=== PATIENT | female | born 1990 | race Caucasian/White ===

== ENCOUNTER 2016-06-13 09:22 | Emergency (ER) | payer BC, MEDICAID ==
[2016-06-13 09:43] VITALS: BP 145/79
--- NOTE | 2016-06-13 10:05 | ED ---
Influenza-Like Illness - HPI Summary HPI Summary: 25 y/o female here c/o runny nose, sore throat, fever, chills, sinus congestion and postnasal drip since yesterday. She denies any JONES, CP or palpitations. She reports no abdominal pain diarrhea a=ro constipation. LMP 2 weeks ago. - History of Current Complaint Chief Complaint: UCRespiratory Time Seen by Provider: 06/13/16 09:55 Hx Obtained From: Patient Onset/Duration: Gradual Onset Severity: Moderate Associated Signs & Symptoms: Fever, Myalgia, Cough, Sore Throat, Nasal Congestion - Allergy/Home Medications Allergies/Adverse Reactions: Allergies Allergy/AdvReac Type Severity Reaction Status Date / Time Lidocaine [From Emla] Allergy BURNING Verified 03/02/15 08:42 Prilocaine [From Emla] Allergy BURNING Verified 03/02/15 08:42 PMH/Surg Hx/FS Hx/Imm Hx Endocrine/Hematology History: Denies: Hx Diabetes, Hx Thyroid Disease Cardiovascular History: Denies: Hx Hypertension, Other Cardiovascular Problems/Disorders Respiratory History: Denies: Hx Asthma, Hx Chronic Obstructive Pulmonary Disease (COPD), Other Respiratory Problems/Disorders GI History: Reports: Hx Gastroesophageal Reflux Disease Denies: Hx Ulcer, Other GI Disorders Musculoskeletal History: Denies: Other Musculoskeletal History Sensory History: Reports: Hx Contacts or Glasses - GLASSES Denies: Hx Hearing Aid Opthamlomology History: Reports: Hx Contacts or Glasses - GLASSES Neurological History: Reports: Hx Migraine - ONE ONLY Denies: Other Neuro Impairments/Disorders Psychiatric History: Reports: Hx Depression - POST - Surgical History Surgery Procedure, Year, and Place: SEPTOPLASTY 2008 [facility] [place] Hx Anesthesia Reactions: No - Immunization History Date of Tetanus Vaccine: 2012 Date of Influenza Vaccine: 2012 Infectious Disease History: No Infectious Disease History: Reports: Hx Shingles Denies: Hx Clostridium Difficile, Hx Hepatitis, Hx Human Immunodeficiency Virus (HIV), Hx of Known/Suspected MRSA, Hx Tuberculosis, Hx Known/Suspected VRE , Hx Known/Suspected VRSA, History Other Infectious Disease, Traveled Outside the [place] in Last 30 Days - Social History Alcohol Use: Rare Substance Use Type: Reports: None Smoking Status (MU): Former Smoker Have You Smoked in the Last Year: No Review of Systems Positive: Chills Eyes: Negative Positive: Sore Throat, Nasal Discharge Cardiovascular: Negative Respiratory: Negative Gastrointestinal: Negative Genitourinary: Negative Musculoskeletal: Negative Skin: Negative Neurological: Negative Psychological: Normal All Other Systems Reviewed And Are Negative: Yes Physical Exam - Summary Physical Exam Summary: Vital signs: Reviewed Gen.: Patient is an obese female in no acute distress. Patient is sitting comfortably on the stretcher. Head: Normacephalic and atraumatic Eyes: PERRLA, EOMI x2. Ears: Right ear canal and TM WNL and Left ear canal and TM WNL Nose and mouth: Nose with and clear discharge, mild pharyngeal erythema with no exudate. Neck: Supple, No cervical lymphadenopathy. No JVD Lungs: CTA B/L CVS: S1 & S2 present. No murmurs appreciated. ABDOMEN: Soft NT w/ positive BS. EXT: FROM x 4 NEURO: A+O X 3. Triage Information Reviewed: Yes Vital Signs On Initial Exam: Initial Vitals Temp Pulse Resp BP Pulse Ox 99.7 F 103 22 145/79 99 06/13/16 09:40 06/13/16 09:40 06/13/16 09:40 06/13/16 09:40 06/13/16 09:40 Vital Signs Reviewed: Yes Diagnostics - Vital Signs Vital Signs Temp Pulse Resp BP Pulse Ox 06/13/16 09:40 99.7 F 103 22 145/79 99 - Laboratory Lab Statement: Any lab studies that have been ordered have been reviewed, and results considered in the medical decision making process. Flu Symptom Course/Dx - Course Assessment/Plan: 25 y/o female here c/o runny nose, sore throat, fever, chills, sinus congestion and postnasal drip since yesterday. She denies any JONES, CP or palpitations. She reports no abdominal pain diarrhea or constipation. LMP 2 weeks ago. Patient reports her son was diagnosed with strep pharyngitis yesterday and now she is having same symptoms. Rapid strep is positive. Therefore she will given a Rx for Amoxicillin for 10 days. I discussed all the findings and test results with the patient. Patient was instructed to return to the emergency room immediately if any of the symptoms return or worsens. Plan of care was discussed with the patient and understands and agrees. All questions were answered at patient satisfaction. There were no further complaints or concerns. Lung exam before discharge: CTA B/L. Good air exchange. No wheezing or crackles heard. CVS: S1 and S2 present. No murmurs appreciated. Patient is alert and oriented x 3. Patient is hemodynamically stable. 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
== END 2016-06-13 10:39 | disposition home or self-care (01) ==
LOC: UCEAST 09:22
DX: J02.0 Streptococcal pharyngitis (principal); I10 Essential (primary) hypertension; Z88.4 Allergy status to anesthetic agent; Z87.891 Personal history of nicotine dependence
CPT/HCPCS: 87502; 87651; 99212; G0463

== ENCOUNTER 2018-03-07 16:10 | Emergency (ER) | payer OTHER ==
[2018-03-07 16:41] VITALS: BP 122/77
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
== END 2018-03-07 17:03 | disposition home or self-care (01) ==
LOC: UCEAST 16:10
DX: M62.830 Muscle spasm of back (principal); V43.52XA Car driver injured in collision with other type car in traffic accident, initial encounter; Y92.9 Unspecified place or not applicable; F17.210 Nicotine dependence, cigarettes, uncomplicated; Z88.4 Allergy status to anesthetic agent
CPT/HCPCS: 99212; G0463

== ENCOUNTER 2018-05-22 13:19 | Emergency (ER) | payer OTHER ==
[2018-05-22 13:42] VITALS: BP 120/74
--- NOTE | 2018-05-22 13:57 | UC ---
Skin Complaint HPI - HPI Summary HPI Summary: 27 yo female presents with rash on abdomen for the last 2 months. She tells me that over the last 2 months she has noticed small dime to quarter sized areas of scaling, itching, and redness/brownish on abdomen. She has not been applying any creams to the areas. No pain. Denies fever or recent illness. - History of Current Complaint Chief Complaint: UCRas Time Seen by Provider: 05/22/18 13:57 Stated Complaint: SKIN ISSUE Hx Obtained From: Patient Hx Last Menstrual Period: 05/17/18 Onset/Duration: Gradual Onset Current Severity: None Pain Intensity: 0 - Allergy/Home Medications Allergies/Adverse Reactions: Allergies Allergy/AdvReac Type Severity Reaction Status Date / Time lidocaine [From Emla] Allergy Pain Verified 05/22/18 13:43 prilocaine [From Emla] Allergy Pain Verified 05/22/18 13:43 PMH/Surg Hx/FS Hx/Imm Hx - Additional Past Medical History Additional PMH: none - Surgical History Surgical History: Yes Surgery Procedure, Year, and Place: TONSILS 2015. SEPTOPLASTY 2008 [facility] [place] - Family History Known Family History: Positive: None - Social History Lives: With Family Alcohol Use: Occasionally Substance Use Type: None Smoking Status (MU): Former Smoker Have You Smoked in the Last Year: No When Did the Patient Quit Smoking/Using Tobacco: 2013 - Immunization History Most Recent Influenza Vaccination: none Most Recent Tetanus Shot: 05/27/14 Most Recent Pneumonia Vaccination: n/a Review of Systems All Other Systems Reviewed And Are Negative: Yes Constitutional: Positive: Negative Skin: Positive: Rash Eyes: Positive: Negative ENT: Positive: Negative Respiratory: Positive: Negative Cardiovascular: Positive: Negative Gastrointestinal: Positive: Negative Neurovascular: Positive: Negative Neurological: Positive: Negative Psychological: Positive: Negative Physical Exam - Summary Physical Exam Summary: GENERAL: NAD. WDWN. No pain distress. SKIN: Abdomen: four <5mm areas of hyperpigmentation and mild scaling. No open wounds, erythema, edema, drainage, or pain. NECK: Supple. Nontender. No lymphadenopathy. CHEST: No accessory muscle use. Breathing comfortably and in no distress. CV: Pulses intact. Cap refill <2seconds NEURO: Alert. PSYCH: Age appropriate behavior. Triage Information Reviewed: Yes Vital Signs: Initial Vital Signs Temp 97.9 F 05/22/18 13:39 Pulse 78 02/21/19 13:39 Resp 17 05/22/18 13:39 BP 120/74 05/22/18 13:39 Pulse Ox 100 05/22/18 13:39 Vital Signs Reviewed: Yes Course/Dx - Course Course Of Treatment: Suspect tinea infection. Rx for clotrimazole. - Diagnoses Provider Diagnosis: Tinea Discharge - Sign-Out/Discharge Documenting (check all that apply): Patient Departure All imaging exams completed and their final reports reviewed: No Studies - Discharge Plan Condition: Stable Disposition: HOME Prescriptions: Clotrimazole 1% CREAM* [Clotrimazole 1%*] 1 applic TOPICAL BID #1 tube Patient Education Materials: Tinea Versicolor (ED) Referrals: No Primary Care Phys,NOPCP [Primary Care Provider] - Additional Instructions: If you develop a fever, shortness of breath, chest pain, new or worsening symptoms - please call your PCP or go to the ED. - Billing Disposition and Condition Condition: STABLE Disposition: Home
== END 2018-05-22 14:15 | disposition home or self-care (01) ==
LOC: UCEAST 13:19
DX: B35.9 Dermatophytosis, unspecified (principal); Z87.891 Personal history of nicotine dependence; Z88.4 Allergy status to anesthetic agent
CPT/HCPCS: 99212; G0463

== ENCOUNTER → 2018-11-05 | Day surgery (SDC) | payer OTHER, MEDICAID ==
[~2018-11-05] MED LIST: Buffered Lidocaine 1% SYRIN* 1 ML/SYRINGE INTRADERM ONE; DOXYcycline IV 200 MG in NS 250 mL *Pre-Op OBGYN IVPB ONE; Dexamethasone IV* 4 MG/ML 1 ML (4 MG) ONE; DiMENhydriNATE IV* 50 MG/ML VIAL IV PUSH PRN; HYDROmorphone INJ1* 1 MG/ML SYRINGE IV PRN; Lactated Ringers 1000 ML Bag* 1,000 ML IV SCH; Lidocaine 1% INJ* 10 MG/ML 30 ML SDV ONE; Midazolam* 1 MG/ML 5 ML VIAL (5 MG) ONE; Misoprostol TAB* 200 MCG ONE; Naloxone* 0.4 MG/ML 1 ML VIAL IV PRN; Ondansetron INJ* 2 MG/ML VIAL IV PRN; Ondansetron INJ* 2 MG/ML VIAL ONE; fentaNYL* 50 MCG/ML 2 ML VIAL (100 MCG VIAL) ONE; oxyCODONE/Acetamin 5/325 MG* TAB ONE; oxyCODONE/Acetamin 5/325 MG* TAB PO PRN
[2018-11-05 08:50] LABS: Hematocrit 37 % (35-47); Hemoglobin 13.4 g/dL (12.0-16.0); Mean Corpuscular HGB Conc 36 g/dL (31-36); Mean Corpuscular Hemoglobin 31 pg (27-31); Mean Corpuscular Volume 87 fL (80-97); Mean Platelet Volume 9.2 fL (7.4-10.4); Platelet Count 248 10^3/uL (150-450); Red Blood Count 4.29 10^6 /uL (3.70-4.87); Red Cell Distribution Width 14 % (10-15); White Blood Count 7.6 10^3/uL (3.5-10.8)
[2018-11-05] MEDS: fentaNYL* 50 MCG/ML 2 ML VIAL (100 MCG VIAL) IV PRN ×2 (10:50→11:26)
[2018-11-05 12:06] VITALS: BP 85/55
--- NOTE | 2018-11-05 12:41 | OP ---
OPERATIVE REPORT: DATE OF OPERATION: 11/05/18 DATE OF : 88 SURGEON: Breann Owen MD NEWS CLIPPING CUTTER: Dustin Sandra DO ANESTHESIOLOGIST: Dr. Echeverria. ANESTHESIA: Sedation with paracervical block, 20 cc used, 1% lidocaine. PRE-OP DIAGNOSIS: Missed . POST-OP DIAGNOSIS: Missed . OPERATIVE PROCEDURE: Dilation and curettage. ESTIMATED BLOOD LOSS: 50 cc. URINE OUTPUT: 100 cc of clear yellow urine. FLUIDS: 800 cc of IV crystalloid. FINDINGS: Revealed intrauterine contents consistent with products of conception. Cry of uterus in 4 quadrants heard. SPECIMENS: Intrauterine contents. COMPLICATIONS: None apparent. DISPOSITION: Stable to recovery room. DESCRIPTION OF PROCEDURE: The patient was placed in dorsal lithotomy position. Legs were placed in [employer] stirrups. The perineum and vagina were prepped and draped in a sterile standard fa shion. The patient was identified with universal protocol for correct position, patient, and procedu re. A self-cath was placed for drainage of clear yellow urine, 100 cc. Self-cath was removed. Ster ile speculum was inserted. Cervix was visualized. 5 cc of 1% lidocaine was injected in the anterior lip of the cervix. A single-tooth tenaculum was placed. Paracervical block was carried out with loree roximately 20 cc of 1% lidocaine. The cervix was then dilated to #8 Hegar dilator. A suction curett age was then performed in a standard fashion with an 8-mm curved suction curette tip. After complete evacuation of the uterine contents, a sharp curettage was performed. Confirmation of cry of uterus w as heard x4 quadrants. Single-tooth tenaculum was then removed. Hemostasis was assured. Cytotec 80 0 mcg was placed intravaginally. Sterile speculum was removed prior to placement of the Cytotec. All sponge, instrument, and blade counts were correct throughout the case. The patient tolerated the pr ocedure well and went to recovery room in stable condition. [id number]/[facility] #: [id number]
== END | disposition home or self-care (01) ==
LOC: OR 07:22
PROVIDERS: ATTEND Obstetrics & Gynecology
DX: Z01.818 Encounter for other preprocedural examination (principal); O02.0 Blighted ovum and nonhydatidiform mole; F32.9 Major depressive disorder, single episode, unspecified
CPT/HCPCS: 36415; 84702; 85027; 86850; 86900; 86901; 88305; A9270-GY; J1100; J2250; J2405; J3010

== ENCOUNTER 2019-01-26 17:53 | Emergency (ER) | payer MEDICAID, OTHER ==
--- OUTSIDE RECORDS SUMMARY | 2019-01-26 17:59 | XMS REPORT | Summary of Care ---
:1990 Author Organization [facility] Address [address] [facility] [place] [address] Care Team Providers Name Role Phone Valente Valentin MD Primary Care Provider Reason for Referral Refer to Department Only (Routine) Status Reason Specialty Diagnoses / Referred By Referred To Procedures Contact Contact Pending Review Physical Therapy Diagnoses Acute pain of right knee Jorge Henderson [facility] Physical [facility] Therapy [address] [place] [address] [address] [place] [address] [place] Phone: [phone] Phone: Reason for Visit Reason Comments Physical 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 Encounter Details Date Type Department Care Team Description 12/03/2018 Office Visit [facility] Jorge Henderson PA Routine general medical examination at health care facility (Primary Dx); [address] [facility] BMI 45.0-49.9, adult (HCC); [place] [address] 38 Encounter for PPD test; [phone] [place] [address] Need for influenza vaccination; [phone] Acute pain of right knee Allergies No Known Allergiesdocumented as of this encounter (statuses as of 12/05/2018) Medications Medication Sig Dispensed Refills Start Date End Date Status ibuprofen (MOTRIN) 800 Take 800 mg by 0 Active MG Oral Tab mouth EVERY SIX HOURS NEEDED for Pain. Hospital, Clinic, or Ordered Dose Route Frequency Start Date End Date Status Other Facility Administered Medication influenza virus 0.5 mL IM X1 BEFORE 12/03/2018 12/03/2018 Ended vaccine DISCHARGE (FLUZONE,FLULAVAL) injection 0.5 mLIndications: Need for influenza vaccination documented as of this encounter (statuses as of 12/05/2018) Active Problems Problem Noted Date BMI 45.0-49.9, adult 12/03/2018 documented as of this encounter (statuses as of 12/05/2018) Immunizations Name Administration Dates Next Due Influenza (IM) Preservative Free 12/03/2018 documented as of this encounter Social History Tobacco Use Types Packs/Day Years Used Date Former Smoker Quit: 12/30/2016 Smokeless Tobacco: Never Used Comments: socially Alcohol Use Drinks/Week oz/Week Comments Yes occ Sex Assigned at Date Recorded Not on file Job Start Date Occupation Industry Not on file Not on file Not on file Travel History Travel Start Travel End No recent travel history available. documented as of this encounter Last Filed Vital Signs Vital Sign Reading Time Taken Comments Blood Pressure 104/80 12/03/2018 9:01 AM EDT Pulse 89 12/03/2018 9:01 AM EDT Temperature 36.4 12/03/2018 9:01 AM EDT C (97.5 F) Respiratory Rate 18 12/03/2018 9:01 AM EDT Oxygen Saturation 96% 12/03/2018 9:01 AM EDT Inhaled Oxygen Concentration - - Weight 122.2 kg (269 lb 8 oz) 12/03/2018 9:01 AM EDT Height 160 cm (5' 3") 12/03/2018 9:01 AM EDT Body Mass Index 47.74 12/03/2018 9:01 AM EDT documented in this encounter Patient Instructions Patient InstructionsJorge Henderson PA - 12/03/2018 9:00 AM EDTPhysical exam. X- ray right knee. Will consider PT if x-ray unremarkable. Send labs from recent GYNvisit. Flu shot and PPD today. Follow-up next Saturday for 2 step PPD. Follow-up this Saturday for PPD read. Discussed diet and exercise. Try to avoid excess sugars and complex carbohydrates at night. Follow-up regular well visits. documented in this encounter Progress Notes Jorge Henderson PA - 12/03/2018 9:00 AM EDT PATIENT: Rosie Hernandez : 1990 DATE OF SERVICE: 12/03/2018 CHIEF COMPLAINT: Chief Complaint Patient presents with Physical Needs physical and [facility] for purchasing internship Subjective HISTORY OF PRESENT ILLNESS: Rosie Hernandez is a 28-y.o. female who presents for physical. 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 In school at 3. Has 2 kids currently. Some concern with diet and weight. Says she eats a large meal at night. No regular exercise. About a month ago she was sprinting during an outdoor activity with some of her peers. Now having pain to the outside of her right knee. Denies instability or patellar dislocation. Denies numbness/tingling down her leg or back pain. Has not noticed any swelling or redness to the area. No previous surgeries. Had D&C 1 month ago following miscarriage. Had routine labs done through her [facility]. Not currently sexually active and no current relationships. Former smoker 2 years ago. No current prescription medications. Denies excess alcohol use or illicit drug use. No change in family history. HPI Past Medical History: Diagnosis Date History of tonsillectomy No family history on file. Current Outpatient Medications Medication Sig ibuprofen (MOTRIN) 800 MG Oral Tab Take 800 mg by mouth EVERY SIX HOURS NEEDED for Pain. No current facility-administered medications for this visit. No Known Allergies Social History Socioeconomic History Marital status: Spouse name: Not on file Number of children: Not on file Years of education: Not on file Highest education level: Not on file Occupational History Not on file Social Needs Financial resource strain: Not on file Food insecurity: Worry: Not on file Inability: Not on file Transportation needs: Medical: Not on file Non-medical: Not on file Tobacco Use Smoking status: Former Smoker Last attempt to quit: 12/30/2016 Years since quittin.9 Smokeless tobacco: Never Used Tobacco comment: socially Substance and Sexual Activity Alcohol use: Yes Comment: occ Drug use: No Sexual activity: Yes Partners: Male Lifestyle Physical activity: Days per week: Not on file Minutes per session: Not on file Stress: Not on file Relationships Social connections: Talks on phone: Not on file Gets together: Not on file Attends mosque service: Not on file Active member of club or organization: Not on file Attends meetings of clubs or organizations: Not on file Relationship status: Not on file Intimate partner violence: Fear of current or ex partner: Not on file Emotionally abused: Not on file Physically abused: Not on file Forced sexual activity: Not on file Other Topics Concern Back Care Not Asked Bike Helmet Not Asked Blood Transfusions Not Asked Caffeine Concern Not Asked Exercise Not Asked Hobby Hazards Not Asked International Travel Not Asked Service Not Asked Occupational Exposure Not Asked Seat Belt Not Asked Self-Exams Not Asked Sleep Concern Not Asked Special Diet Not Asked Stress Concern Not Asked Weight Concern Not Asked Social History Narrative 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 Has 2 kids. No current relationships. Over the last 2 weeks, have you been feeling down, depressed, anxious, or hopeless?: 0 Over the past 2 weeks, have you felt little interest or pleasure in doing things ?: 0 REVIEW OF SYSTEMS: Review of Systems Constitutional: Negative. HENT: Negative. Eyes: Negative. Respiratory: Negative. Cardiovascular: Negative. Gastrointestinal: Negative. Genitourinary: Negative. Musculoskeletal: Positive for joint pain (Right knee). Skin: Negative. Neurological: Negative. Psychiatric/Behavioral: Negative. Objective PHYSICAL EXAM: VITALS: BP 104/80 | Pulse 89 | Temp 97.5 F (36.4 C) | Resp 18 | Ht 5' 3" (1.6 m) | Wt 269 lb 8 oz (122.2 kg) | SpO2 96% | BMI 47.74 kg/m Body mass index is 47.74 kg/m. Physical Exam Constitutional: Morbidly obese, no acute distress HENT: Head: Normocephalic and atraumatic. Right Ear: Tympanic membrane and ear canal normal. Left Ear: Tympanic membrane and ear canal normal. Mouth/Throat: Oropharynx is clear and moist. Eyes: Pupils are equal, round, and reactive to light. Conjunctivae are normal. Neck: No thyromegaly present. Cardiovascular: Normal rate, regular rhythm and normal heart sounds. Pulmonary/Chest: Effort normal and breath sounds normal. Abdominal: Soft. Bowel sounds are normal. Android obesity Musculoskeletal: No lower extremity edema bilaterally Valgus angulation bilateral legs. No overt abnormality to right knee. Normal patella. No obvious Parekh's cyst. Lateral joint line tenderness. No obvious effusion. Ligamentous structures intact. Good popliteal pulse. No calf tenderness. Neurological: She is alert. She displays normal reflexes. Skin: Skin is warm and dry. Psychiatric: She has a normal mood and affect. Judgment normal. Vitals reviewed. ASSESSMENT / IMPRESSION: ICD-9-CM ICD-10-CM 1. Routine general medical examination at health care facility V70.0 Z00.00 2. BMI 45.0-49.9, adult (HCC) V85.42 Z68.42 3. Encounter for PPD test V74.1 Z11.1 PPD 4. Need for influenza vaccination V04.81 Z23 [place] FLU VACCINE PRES FREE 3YRS+ ADULT (DX Z23) 5. Acute pain of right knee 719.46 M25.561 XR KNEE 4 OR MORE VIEWS RIGHT ( STANDARD) X-ray right knee unremarkable. Plan Satisfactory exam aside from weight. X-ray right knee. Referral for PT. Send labs from recent [facility] visit. Flu shot and PPD today. Follow-up next Saturday for 2 step PPD. Follow-up this Saturday for PPDread. Discussed diet and exercise. Try to avoid excess sugars and complex carbohydrates at night. Follow-up regular well visits. Author: TAMERA Galvan 12/03/2018 09:29 documented in this encounter Plan of Treatment Name Type Priority Associated Diagnoses Order Schedule REFER TO PHYSICAL Referral Routine Acute pain of right 99 Occurrences starting THERAPY / REHAB knee 12/05/2018 until 12/06/2019 Health Maintenance Due Date Last Done Comments PAP SMEAR 1990 HIV SCREENING 2004 DEPRESSION SCREENING 12/04/2019 12/03/2018 INFLUENZA VACCINE Completed 12/03/2018 HPV IMMUNIZATION SERIES Aged Out No longer eligible based on patient's age to complete this topic MENINGOCOCCAL VACCINE IMM Aged Out No longer eligible based on patient's age to complete this topic PNEUMOCOCCAL 0-64 YRS Aged Out No longer eligible based on patient's age to complete this topic documented as of this encounter Procedures Procedure Name Priority Date/Time Associated Diagnosis Comments PPD Routine 12/03/2018 9:40 AM Encounter for PPD Results for this EDT test procedure are in the results section. documented in this encounter Results XR KNEE 4 OR MORE VIEWS RIGHT (STANDARD) (12/03/2018 9:59 AM EDT) Specimen Impressions Performed At No acute osseous or articular abnormality evident. Signed by Toan Bryan on 12/05/2018 2:55 AM Narrative Performed At Procedure(s): XR KNEE 4 OR MORE VIEWS RIGHT (STANDARD) Date of service: 12/03/2018 9:50 AM Provided clinical information: 28 years, Female, "lateral joint line tenderness right knee" Procedure and materials: Standard protocol. Comparison studies: None. Observations: Side: 4 views of the right knee. Bones: Intact with no displaced fracture or focal osseous destruction. Joints: There is anatomic alignment with normal joint spaces. Soft tissues: Unremarkable. Procedure Note Interface, Rad Results - 12/05/2018 2:57 AM EDT Procedure(s): XR KNEE 4 OR MORE VIEWS RIGHT (STANDARD) Date of service: 12/03/2018 9:50 AM Provided clinical information: 28 years, Female, "lateral joint line tenderness right knee" Procedure and materials: Standard protocol. Comparison studies: None. Observations: Side: 4 views of the right knee. Bones: Intact with no displaced fracture or focal osseous destruction. Joints: There is anatomic alignment with normal joint spaces. Soft tissues: Unremarkable. IMPRESSION No acute osseous or articular abnormality evident. Signed by Toan Bryan on 12/05/2018 2:55 AM PPD (12/03/2018 9:40 AM EDT) Lot Number [id number] [facility] POCT Site left forearm [facility] Erythema [facility] Induration 0 0 - 15 MM [facility] POCT Positive or NegativeComment: Negative - [facility] Negative (PPD) read by Cha Positive POCT Dino DESAI Expiration Date 09/15/2020 [facility] POCT Date Resulted 12/05/2018 [facility] POCT Specimen Performing Organization Address City/State/Zipcode Phone Number [facility] [address]CT [address] [place] [phone] documented in this encounter Visit Diagnoses Diagnosis Routine general medical examination at health care facility - Primary Routine general medical examination at a health care facility BMI 45.0-49.9, adult (HCC) Body Mass Index 45.0-49.9, adult Encounter for PPD test Screening examination for pulmonary tuberculosis Need for influenza vaccination Need for prophylactic vaccination and inoculation against influenza Acute pain of right knee documented in this encounter Administered Medications Medication Order MAR Action Action Date Dose Rate Site influenza virus vaccine Given 12/03/2018 10:02 AM EDT 0.5 mL Left Arm (FLUZONE,FLULAVAL) injection 0.5 mL 0.5 mL, Intramuscular, X1 BEFORE DISCHARGE, 1 dose, First dose on Sat12/03/18 at 1040 documented in this encounter Insurance Payer Benefit Plan / Subscriber ID Effective Dates Phone Address Type Group [place] xxxxxxxx 2018-Present [place] documented as of this encounter
== END 2019-01-26 19:16 | disposition left against medical advice (07) ==
LOC: UCEAST 17:53
DX: Z53.21 Procedure and treatment not carried out due to patient leaving prior to being seen by health care provider (principal)

== ENCOUNTER 2020-03-06 17:52 | Inpatient (IN) ==
[2020-03-06] MEDS ORDERED: Penicillin G Potassium IV 5,000,000 UNITS in NS 0.9% 100 ml BAG 100 ML IVPB ONE (18:49)
[2020-03-06] MEDS ORDERED: Dinoprostone 10 MG VAG.SUPP VAGINAL ONE (18:49)
[2020-03-06] MEDS ORDERED: Morphine 10 MG/ML VIAL (1 ml) IM ONE (19:01)
[2020-03-06] MEDS ORDERED: Promethazine INJ(RESTRICTED) 25 MG/ML 1 ml VIAL IM PRN (19:02)
[2020-03-07 05:56] LABS: ABS Eosinophils 0.1 10^3/ul (0-0.6); ABS Lymphocytes 2.7 10^3/ul (1.0-4.8); ABS Monocytes 0.6 10^3/ul (0-0.8); ABS Neutrophils 5.8 10^3/ul (1.5-7.7); Eosinophil % 1.1 %; Hematocrit 34 % (35-47); Hemoglobin 11.5 g/dL (12.0-16.0); Lymphocyte % 29.2 %; Mean Corpuscular HGB Conc 34 g/dL (31-36); Mean Corpuscular Hemoglobin 31 pg (27-31); Mean Corpuscular Volume 92 fL (80-97); Mean Platelet Volume 10.1 fL (7.4-10.4); Platelet Count 198 10^3/uL (150-450); Red Blood Count 3.67 10^6 /uL (3.70-4.87); Red Cell Distribution Width 14 % (10-15); White Blood Count 9.2 10^3/uL (3.5-10.8)
[2020-03-07 06:07] LABS: Urine Benzodiazepine Screen None Detected (None Detect); Urine Cannabinoids Screen None Detected (None Detect); Urine Opiates Screen None Detected (None Detect)
[2020-03-07] MEDS ORDERED: Oxytocin in LR 20 UNITS/1,000 ML BAG IVPB SCH (09:00)
[2020-03-07] MEDS: Lactated Ringers 1000 ml BAG 1,000 ML IV SCH ×2 (09:32→11:41)
[2020-03-07] MEDS: Penicillin G Potassium IV 3,000,000 UNITS in NS 0.9% 100 ml BAG 100 ML IVPB SCH (20:22)
[2020-03-08] MEDS: Penicillin G Potassium IV 3,000,000 UNITS in NS 0.9% 100 ml BAG 100 ML IVPB SCH ×3 (01:47→09:05)
[2020-03-08] MEDS ORDERED: OBEPIDURAL 250 ML EPIDURAL ONE (02:28)
[2020-03-08] MEDS ORDERED: Bupivacaine 0.25% SDV PF 10 ML VIAL INJ ONE (03:00)
[2020-03-08] MEDS ORDERED: Lactated Ringers 1000 ml BAG 1,000 ML IV ONE (03:37)
[2020-03-08] MEDS ORDERED: Sodium Citrate/Citric Acid LIQ 15 ML UDC PO PRN (03:37)
[2020-03-08] MEDS ORDERED: Phenylephrine 40 mcg/mL 10mL (400mcg) SYRINGE IV PUSH PRN ×2 (03:37)
[2020-03-08] MEDS ORDERED: EPHEDrine (Pressors) 50 MG/ML VIAL IV PUSH PRN ×2 (03:37)
[2020-03-08] MEDS ORDERED: OBEPIDURAL 250 ML EPIDURAL SCH (04:00)
[2020-03-08] MEDS ORDERED: Lactated Ringers 1000 ml BAG 1,000 ML IV SCH ×2 (04:00→12:00)
[2020-03-08] MEDS ORDERED: Witch Hazel PAD JAR TOPICAL PRN (11:06)
[2020-03-08] MEDS ORDERED: Oxytocin in LR 20 UNITS/1,000 ML BAG IVPB SCH (12:00)
[2020-03-09 09:03] LABS: ABS Eosinophils 0.1 10^3/ul (0-0.6); ABS Lymphocytes 2.1 10^3/ul (1.0-4.8); ABS Monocytes 0.5 10^3/ul (0-0.8); ABS Neutrophils 6.6 10^3/ul (1.5-7.7); Eosinophil % 1.5 %; Hematocrit 32 % (35-47); Hemoglobin 10.5 g/dL (12.0-16.0); Lymphocyte % 22.2 %; Mean Corpuscular HGB Conc 33 g/dL (31-36); Mean Corpuscular Hemoglobin 31 pg (27-31); Mean Corpuscular Volume 94 fL (80-97); Mean Platelet Volume 9.4 fL (7.4-10.4); Platelet Count 168 10^3/uL (150-450); Red Blood Count 3.36 10^6 /uL (3.70-4.87); Red Cell Distribution Width 14 % (10-15); White Blood Count 9.4 10^3/uL (3.5-10.8)
[2020-03-10 10:44] VITALS: BP 134/81
== END 2020-03-10 17:40 | disposition home or self-care (01) | DRG 560 ==
LOC: MCHOBOUT 17:52 → MCHOB 18:43
PROVIDERS: ADMIT Obstetrics & Gynecology; ATTEND Obstetrics & Gynecology

== ENCOUNTER 2022-04-30 08:12 | Inpatient (IN) ==
[2022-04-30] MEDS ORDERED: Lactated Ringers 1000 ml BAG 1,000 ML IV ONE (08:54)
[2022-04-30] MEDS ORDERED: Promethazine INJ(RESTRICTED) 25 MG/ML 1 ml VIAL IV PRN (08:54)
[2022-04-30] MEDS ORDERED: Nalbuphine 10 MG/ML 1 ML VIAL IV PRN (08:54)
[2022-04-30] MEDS ORDERED: Buffered Lidocaine 1% SYRIN 1 ml INTRADERM ONE (08:54)
[2022-04-30] MEDS ORDERED: Oxytocin in LR 20,000 MILLI.UNIT/1,000 ML BAG IV SCH (09:00)
[2022-04-30 09:10] LABS: ABS Eosinophils 0.1 10^3/ul (0-0.6); ABS Lymphocytes 1.8 10^3/ul (1.0-4.8); ABS Monocytes 0.5 10^3/ul (0-0.8); Eosinophil % 1.3 %; Hematocrit 33 % (35-47); Hemoglobin 11.1 g/dL (12.0-16.0); Lymphocyte % 21.7 %; Mean Corpuscular HGB Conc 33 g/dL (31-36); Mean Corpuscular Hemoglobin 30 pg (27-31); Mean Corpuscular Volume 90 fL (80-97); Mean Platelet Volume 9.8 fL (7.4-10.4); Platelet Count 202 10^3/uL (150-450); Red Blood Count 3.72 10^6 /uL (3.70-4.87); Red Cell Distribution Width 14 % (10-15); White Blood Count 8.4 10^3/uL (3.5-10.8)
[2022-04-30] MEDS ORDERED: Dinoprostone 10 MG VAG.SUPP VAGINAL ONE (09:31)
[2022-04-30 09:36] LABS: Urine Benzodiazepine Screen None Detected (None Detect); Urine Cannabinoids Screen None Detected (None Detect); Urine Opiates Screen None Detected (None Detect)
[2022-05-01] MEDS: Lactated Ringers 1000 ml BAG 1,000 ML IV SCH ×2 (09:26→12:16)
[2022-05-01] MEDS ORDERED: OBEPIDURAL (200 ML) 200 ML EPIDURAL ONE (10:09)
[2022-05-01] MEDS ORDERED: Lidocaine 2% w/ EPI 1:200,000 MPF 20 ML SDV VIAL ONE (10:09)
[2022-05-01] MEDS ORDERED: fentaNYL 100 mcg/2 ml 50 MCG/ML VIAL ONE (11:19)
[2022-05-01] MEDS ORDERED: fentaNYL 100 mcg/2 ml 50 MCG/ML VIAL IV ONE (11:40)
[2022-05-01] MEDS ORDERED: Sodium Citrate/Citric Acid LIQ 15 ML UDC PO PRN (12:06)
[2022-05-01] MEDS ORDERED: Lactated Ringers 1000 ml BAG 1,000 ML IV ONE (12:06)
[2022-05-01] MEDS ORDERED: Phenylephrine 40 mcg/mL 10mL (400mcg) SYRINGE IV PUSH PRN ×2 (12:06)
[2022-05-01] MEDS ORDERED: Lactated Ringers 1000 ml BAG 500 ML IV PRN ×2 (12:06)
[2022-05-01 12:47] LABS: Urine Appearance Clear; Urine Bilirubin Negative (Negative); Urine Blood Negative (Negative); Urine Color Yellow; Urine Glucose Negative (Negative); Urine Ketones Negative (Negative); Urine Nitrite Negative (Negative); Urine Protein Negative (Negative); Urine Urobilinogen Negative (Negative)
[2022-05-01] MEDS ORDERED: Lactated Ringers 1000 ml BAG 1,000 ML IV SCH ×3 (13:00→15:00)
[2022-05-01] MEDS ORDERED: OBEPIDURAL (200 ML) 200 ML EPIDURAL SCH (13:00)
[2022-05-01] MEDS ORDERED: Dibucaine 1% OINT 28.35 GM TUBE PR PRN (14:50)
[2022-05-01] MEDS ORDERED: Witch Hazel PAD JAR TOPICAL PRN (14:50)
[2022-05-01] MEDS ORDERED: Glycerin ADULT 2.4 gm SUPP PR PRN (14:50)
[2022-05-01] MEDS ORDERED: Oxytocin in LR 20,000 MILLI.UNIT/1,000 ML BAG IV SCH (15:00)
[2022-05-02 06:33] LABS: ABS Eosinophils 0.1 10^3/ul (0-0.6); ABS Lymphocytes 2.8 10^3/ul (1.0-4.8); Eosinophil % 0.8 %; Hematocrit 31 % (35-47); Hemoglobin 10.5 g/dL (12.0-16.0); Lymphocyte % 23.4 %; Mean Corpuscular HGB Conc 34 g/dL (31-36); Mean Corpuscular Hemoglobin 30 pg (27-31); Mean Corpuscular Volume 90 fL (80-97); Mean Platelet Volume 9.6 fL (7.4-10.4); Platelet Count 182 10^3/uL (150-450); Red Blood Count 3.45 10^6 /uL (3.70-4.87); Red Cell Distribution Width 14 % (10-15); White Blood Count 11.8 10^3/uL (3.5-10.8)
[2022-05-03 09:59] VITALS: BP 114/66
== END 2022-05-03 12:10 | disposition home or self-care (01) | DRG 560 ==
LOC: MCHOBOUT 08:12 → MCHOB 08:27
PROVIDERS: ADMIT Obstetrics & Gynecology; ATTEND Obstetrics & Gynecology